=== PATIENT | male | born 1965 | race Hispanic/Latino ===

== ENCOUNTER 2016-11-15 08:59 | Day surgery (SDC) | payer OTHER ==
[~2016-11-15] VITALS: Ht 167.6 cm; Wt 82.0 kg
[~2016-11-15 08:59] MED LIST: CIALIS5 MG PO; COZAAR25 MG PO; GLUCOPHAGE XR,500 MG PO; GLUCOPHAGE500 MG PO; GLUCOTROL10 MG PO; JANUVIA25 M1 PO; K-TAB10 MEQ PO; LASIX20 MG PO; LIPITOR40 MG PO; LO-DOSE ASPIRIN81 M2 PO; LOPRESSOR25 MG PO; NAPROXEN500 MG PO; NORVASC10 MG PO; PEPCID40 MG PO; TYLENOL EXTRA500 MG PO; ZOCOR40 MG PO
[2016-11-15 09:33] LABS: POINT-OF-CARE METER ID UU14174212
[2016-11-15 09:47] VITALS: BP 156/81
[2016-11-15 11:00] LABS: POINT-OF-CARE METER ID UU14174212
[2016-11-15 13:23] LABS: POINT-OF-CARE METER ID UU13113675
[2016-11-15 13:35] VITALS: BP 168/84
[2016-11-15 14:30] VITALS: BP 166/79
== END 2016-11-15 14:50 | disposition home or self-care (01) ==
LOC: SDC 08:59
PROVIDERS: Ophthalmology
DX: H43.11 Vitreous hemorrhage, right eye (principal); H26.131 Total traumatic cataract, right eye; E11.65 Type 2 diabetes mellitus with hyperglycemia; I25.10 Atherosclerotic heart disease of native coronary artery without angina pectoris; I25.84 Coronary atherosclerosis due to calcified coronary lesion; Z95.5 Presence of coronary angioplasty implant and graft; I25.5 Ischemic cardiomyopathy; E78.5 Hyperlipidemia, unspecified; E11.3299 Type 2 diabetes mellitus with mild nonproliferative diabetic retinopathy without macular edema, unspecified eye; Z87.891 Personal history of nicotine dependence; F10.20 Alcohol dependence, uncomplicated; Z88.8 Allergy status to other drugs, medicaments and biological substances; Z79.84 Long term (current) use of oral hypoglycemic drugs
CPT/HCPCS: 82948; J0690; J1100; J1815; J2795

== ENCOUNTER 2017-03-14 05:36 | Day surgery (SDC) | payer OTHER ==
[~2017-03-14] VITALS: Ht 167.6 cm; Wt 86.1 kg
[2017-03-14 06:19] VITALS: BP 160/75
[2017-03-14 06:35] LABS: POINT-OF-CARE METER ID UU14174212
[2017-03-14 09:12] LABS: POINT-OF-CARE METER ID UU13113675
[2017-03-14 09:20] VITALS: BP 162/77
[2017-03-14 10:00] VITALS: BP 134/76
== END 2017-03-14 10:10 | disposition home or self-care (01) ==
LOC: SDC 05:36
PROVIDERS: Ophthalmology
DX: H35.371 Puckering of macula, right eye (principal); H35.341 Macular cyst, hole, or pseudohole, right eye; H27.01 Aphakia, right eye; E11.3299 Type 2 diabetes mellitus with mild nonproliferative diabetic retinopathy without macular edema, unspecified eye; I10 Essential (primary) hypertension; Z87.891 Personal history of nicotine dependence; E78.5 Hyperlipidemia, unspecified; I25.10 Atherosclerotic heart disease of native coronary artery without angina pectoris; Z95.5 Presence of coronary angioplasty implant and graft; I25.5 Ischemic cardiomyopathy; F10.20 Alcohol dependence, uncomplicated; Z83.3 Family history of diabetes mellitus; Z79.82 Long term (current) use of aspirin; Z88.8 Allergy status to other drugs, medicaments and biological substances
CPT/HCPCS: 82948; J0690; J1100; J2795; J3300